=== PATIENT | female | born 1995 | race Caucasian/White ===

== ENCOUNTER 2016-10-24 22:00 | Emergency (ER) | payer OTHER ==
--- NOTE | 2016-10-25 00:06 | ED CLINICAL REPORT ---
Clinical Report - Physicians/Mid Levels [facility] [address] [place] [address] 10/24/2016 22:02 Patient: SHERIN MUNIZ Time Seen: 22:09; initial patient contact. Arrived- By private vehicle. Historian- patient. HISTORY OF PRESENT ILLNESS Chief Complaint: VOMITING. This started today and is still present. It was gradual in onset and has been waxing/waning. No recent travel. She has had nausea, vomiting and mild, crampy abdominal pain. The pain is described as located in the upper abdomen. No diarrhea, constipation, flank pain or known contact with a sick individual. The illness is described as moderate. Similar symptoms previously: None. Recent medical care: Not recently seen/assessed. REVIEW OF SYSTEMS No fever or difficulty with urination. Currently . All systems otherwise negative, except as recorded above. PAST HISTORY See nurses notes. Surgeries: No history of previous surgery. SOCIAL HISTORY Current every day smoker. No alcohol use or drug use. ADDITIONAL NOTES The nursing notes have been reviewed. PHYSICAL EXAM Vital Signs: 10/24/2016 22:06 BP: 114/98. HR: 77. RR: 18. O2 saturation: 96%. Temp: 98.4 F. Pain level now: 8/10. Have been reviewed. Hypertensive. Heart rate normal. Respiratory rate normal. Temperature normal. Oxygen saturation normal. Appearance: Alert. Oriented X3. No acute distress. Eyes: Eyes normal inspection. ENT: Dry mucous membranes present. CVS: Normal heart rate and rhythm. Heart sounds normal. Respiratory: No respiratory distress. Breath sounds normal. Abdomen: Soft. Mild tenderness in the upper abdomen. Bowel sounds normal. No organomegaly. No mass. Back: Normal inspection. No CVA tenderness. Skin: Skin warm and dry. Normal skin color. No rash. Neuro: Oriented X 3. LABS, X-RAYS, AND EKG Laboratory Tests: UA-Culture if indicated: (JEAN-CLAUDE: 10/24/2016 22:50) ( MsgRcvd 10/24/2016 23:14) Final results Test Result Flag Units (Reference) URINE COLOR YELLOW URINE APPEARANCE CLEAR URINE GLUCOSE NEGATIVE (NEGATIVE) URINE BILIRUBIN NEGATIVE (NEGATIVE) URINE KETONE 3+ (NEGATIVE) URINE SPECIFIC GRAVITY >= 1.030 (1.010-1.030) URINE PH 6.0 (5.0-8.0) URINE PROTEIN 1+ (NEGATIVE) URINE UROBILINOGEN 0.2 EU/dL (0.2-1.0) URINE NITRITE NEGATIVE (NEGATIVE) URINE BLOOD NEGATIVE (NEGATIVE) URINE LEUK ESTERASE TRACE (NEGATIVE) URINE RBC 0-1 rbc/hpf (0-1) URINE WBC 3-5 wbc/hpf (0-1) URINE EPITHELIAL CELLS 3-5 EPI/hpf (0-5) URINE BACTERIA MODERATE (2+ TO 3+) (NONE SEEN) URINE COMMENT CULTURE INDICATED URINE CULTURES ARE SET-UP BASED ON THE FOLLOWING CRITERIA:POSITIVE NITRITEPOSITIVE LEUKOCYTE ESTERASEGREATER THAN 10 WHITE BLOOD CELLSMODERATE (2+) OR GREATER BACTERIA Urine: (JEAN-CLAUDE: 10/24/2016 22:50) ( [facility] 10/24/2016 23:03) Final results Test Result Flag Units (Reference) URINE POSITIVE CBC w Diff: (JEAN-CLAUDE: 10/24/2016 22:10) ( [facility] 10/24/2016 22:43) Final results Test Result Flag Units (Reference) WHITE BLOOD COUNT 16.9 H K/uL (4.5-11.5) RED BLOOD COUNT 4.25 M/uL (4.00-5.20) HEMOGLOBIN 12.6 gm/dL (12.0-16.0) HEMATOCRIT 37.9 % (36.0-46.0) MEAN CELL VOLUME 89 fL (80-100) MEAN CORPUSCULAR HGB 30 pg (26-34) MEAN CORPUSCULAR HGB CONC 33 g/dL (31-37) RED CELL DISTRIBUTION WIDTH 13.2 % (11.6-14.8) PLATELET COUNT 278 K/uL (150-400) LYMPH % 23.2 L % (25-40) MONO % 3.6 % (3-14) GRANULOCYTE % 73.2 (53-90) CMP: (JEAN-CLAUDE: 10/24/2016 22:10) ( MsgRcvd 10/24/2016 22:48) Final results Test Result Flag Units (Reference) GLUCOSE 88 mg/dL (70-110) BUN 7 mg/dL (7-18) CREATININE 0.6 mg/dL (0.6-1.3) Estimated GFR >60 mL/min Estimated GFR- >60 mL/min Note: Persistent reduction over 3 months in eGFR<60 mL/min/1.73 m2 defines CKD. Patients with eGFR values>=60 mL/min/1.73 m2 may also have CKD if evidence ofpersistent proteinuria. Additional information may be foundat www.kidney.org. SODIUM 140 mmol/L (136-145) POTASSIUM 3.4 L mmol/L (3.5-5.1) CHLORIDE 102 mmol/L (98-107) CARBON DIOXIDE 23 mmol/L (21-32) CALCIUM 9.0 mg/dL (8.5-10.1) TOTAL PROTEIN 7.9 g/dL (6.4-8.2) ALBUMIN 3.8 g/dL (3.3-5.0) BILIRUBIN, TOTAL 0.4 mg/dL (0.0-1.0) ALKALINE PHOSPHATASE 67 U/L (46-116) AST (SGOT) 14 L U/L (15-37) ALT (SGPT) 19 U/L (12-78) LIPASE 102 U/L (73-393) AMYLASE 40 U/L (25-115) . PROGRESS AND PROCEDURES Course of Care: 00:06 10/25/16. Pt reports feeling much better after IVF, Zofran, and Famotidine. Pt also looks better. Disposition: Discharged home in good and improved condition. Condition: good. CLINICAL IMPRESSION Vomiting with nausea. No dehydration or volume depletion. Not intractable or bilious. Acute urinary tract infection with cystitis. No pyelonephritis or hematuria. INSTRUCTIONS Drink plenty of fluids. Your Current Medications: CONTINUE TAKING THE FOLLOWING MEDICATIONS: Vitamins Oral. Prescription Medications: Macrobid 100 mg: take 1 capsule orally every 12 hours for 7 days. No refill. Substitution is permissible. Zofran ODT 4 mg: take 1 orally every 6 hours as needed for nausea and vomiting. Dispense ten (10). One refill. Substitution is permissible. Follow-up: Follow up with your doctor Wednesday as scheduled. Screening today revealed the patient's blood pressure to be in the hypertensive range. The patient should follow up with a primary care provider for blood pressure management. (Electronically signed by Felton Tapia Dr. 10/25/2016 1:39)
--- NOTE | 2016-10-25 00:06 | ED ORDER SUMMARY ---
..... Patient: SHERIN MUNIZ OrderSheet [facility] VisitID: [id number] [place] [address] 20y, F Registration Date/Time: 10/24/2016 ORDER SHEET Weight: 79.3 kg (stated) Allergies: No Known Drug Allergy GENERAL ORDERS: CBC w Diff Urgent (22:10/24/2016 Cat Sage) (22:41 CHagerty ER Fiber Product Cutting Machine Operator) CMP Urgent (22:10/24/2016 Cat Sage) (22:41 CHagerty ER Fiber Product Cutting Machine Operator) UA-Culture if indicated Urgent (22:10/24/2016 Cat Sage) (Ack 22:41 Lucaserty ER Fiber Product Cutting Machine Operator) Urine Urgent (22:10/24/2016 Cat Sage) (Ack 22:41 CHagerty ER Fiber Product Cutting Machine Operator) Amylase Urgent (22:10/24/2016 Cat Sage) (22:41 CHagerty ER Fiber Product Cutting Machine Operator) Lipase Urgent (22:10/24/2016 Cat Sage) (22:41 CHagerty ER Fiber Product Cutting Machine Operator) MEDICATION ORDERS: IV FLUIDS: IV NS : initial bolus none -, then 1000 mL/hr for X1 (NOW) (22:30 10/24/2016 Cat Sage) (23:02 Toshia R.N.) Zofran IV 4 mg (NOW) (22:30 10/24/2016 Cat Sage) (23:03 Toshia R.N.) Famotidine IV 20 mg/50mL (NOW) (22:10/24/2016 Cat Sage) (23:04 Toshia R.N.) ORDER SHEET NOTES: [Electronically signed by Sheriff Mariela Egan (00:20 10/25/2016)] [Electronically signed by Felton Tapia Dr. (01:39 10/25/2016)] [Electronically locked/signed by Sheriff Mariela Egan (00:20 10/25/2016)]
--- NOTE | 2016-10-25 00:06 | ED ORDER SUMMARY ---
..... Patient: SHERIN MUNIZ OrderSheet [facility] VisitID: [id number] [place] [address] 20y, F Registration Date/Time: 10/24/2016 ORDER SHEET Weight: 79.3 kg (stated) Allergies: No Known Drug Allergy GENERAL ORDERS: CBC w Diff Urgent (22:10/24/2016 Cat Sage) (22:41 CHagerty ER Electronic Scale Tester) CMP Urgent (22:10/24/2016 Cat Sage) (22:41 CHagerty ER Electronic Scale Tester) UA-Culture if indicated Urgent (22:10/24/2016 Cat Sage) (Ack 22:41 Lucaserty ER Electronic Scale Tester) Urine Urgent (22:10/24/2016 Cat Sage) (Ack 22:41 CHagerty ER Electronic Scale Tester) Amylase Urgent (22:10/24/2016 Cat Sage) (22:41 CHagerty ER Electronic Scale Tester) Lipase Urgent (22:10/24/2016 Cat Sage) (22:41 CHagerty ER Electronic Scale Tester) MEDICATION ORDERS: IV FLUIDS: IV NS : initial bolus none -, then 1000 mL/hr for X1 (NOW) (22:30 10/24/2016 Cat Sage) (23:02 Toshia R.N.) Zofran IV 4 mg (NOW) (22:30 10/24/2016 Cat Sage) (23:03 Toshia R.N.) Famotidine IV 20 mg/50mL (NOW) (22:10/24/2016 Cat Sage) (23:04 Toshia R.N.) ORDER SHEET NOTES: [Electronically signed by Sheriff Mariela Egan (00:20 10/25/2016)] [Electronically signed by Felton Tapia Dr. (01:39 10/25/2016)] [Electronically locked/signed by Sheriff Mariela Egan (00:20 10/25/2016)]
--- NOTE | 2016-10-25 00:06 | ED NURSING NOTES ---
Clinical Report - Nurses [facility] [place] [address] 10/24/2016 22:02 Patient: SHERIN MUNIZ TRIAGE Triage time 22:06. Acuity: LEVEL 3. Chief Complaint: ABDOMINAL PAIN, NAUSEA and VOMITING. --22:12 Sheriff Egan R.N. 22:06 10/24/16. BP: 114/98. HR: 77. RR: 18. O2 saturation: 96%. Temp: 98.4 F. Pain level now: 01/21. --22:12 Sheriff Egan R.N. Weight: 79.3 kg stated. Height/Length: 62 inches Per Patient. BMI: 32. --22:12 Sheriff Egan R.N. Medications Vitamins Oral. --22:08 Sheriff Egan R.N. Allergies No Known Drug Allergy. --22:08 Sheriff Egan R.N. History Arrived by private vehicle. Historian: patient. Accompanied by family. This started today. Onset. (7 AM). PAST MEDICAL HX: Immunizations not up to date. SURGERY HX: ( Right foot). SOCIAL HX: Light tobacco smoker- less than 1/2 a pack per day. No alcohol use or drug use. FALL RISK ASSESSMENT: Fall risk assessment completed. No fall risk identified. NUTRITIONAL RISK ASSESSMENT: The nutritional risk assessment revealed no deficiencies. FUNCTIONAL ASSESSMENT: Functional assessment: no impairments noted. LEARNING NEEDS ASSESSMENT: The learning needs assessment revealed no barriers. SKIN INTEGRITY ASSESSMENT: Skin integrity risk assessment completed. No skin integrity risk identified. --22:12 Sheriff Egan R.N. ( 7 weeks .). --22:12 Sheriff Egan R.N. PHYSICAL ASSESSMENT Ambulatory to room. GENERAL / NEURO / PSYCH: Alert. Oriented X 4. Appears in no acute distress. HEENT: Mucous membranes are pink. RESPIRATORY: Respirations not labored. CVS: Capillary refill less than 2 seconds. SKIN: Skin is warm and dry. --22:13 Sheriff Egan R.N. NURSING PROGRESS NOTES Oxygen administered. Head of bed elevated. Two patient identifiers checked. Call light placed in reach. Side rails up x 2. Bed placed in lowest position. Brakes of bed on. --22:13 Sheriff Egan R.N. 22:50 10/24/2016 Site #1 started via IV in the right upper arm with an 20g angiocath, with good blood return; one attempt. Blood drawn: rainbow set. Labeled in the presence of the patient and sent to the lab. --23:00 Sheriff Egan R.N. 23:02 10/24/2016 Started bag #1 1000 mL IV Fluids IV NS (Saline); at 1000 mL/hr over 1000 hour(s) via site #1 via IV pump. Allergies verified and confirmed 5 rights. IV patency established site checked: no pain, redness, or swelling flushed thoroughly pre- and post-medication administration. --23:02 Sheriff Egan R.N. 23:03 10/24/2016 Zofran (Ondansetron HCl) IVP 4 mg given. via site #1. Allergies verified and confirmed 5 rights. IV patency established site checked: no pain, redness, or swelling flushed thoroughly pre- and post-medication administration. IVP given by RN. --23:03 Sheriff Egan R.N. 23:04 10/24/2016 Started 20 mg of Famotidine IVPB in bag #1 50 mL; at 50 mg/kg/hr via site #1; Allergies verified and confirmed 5 rights. IV patency established site checked: no pain, redness, or swelling flushed thoroughly pre- and post-medication administration. --23:04 Sheriff Egan R.N. 00:18 10/25/2016 IV Fluids IV NS Discontinued: bag #1 completed. Total amount infused: 1000 mL. IV patency established IV site checked: no pain, redness, or swelling IV flushed thoroughly. --00:18 Sheriff Egan R.N. DISPOSITION / DISCHARGE No learning barriers present. Discharge instructions provided and reviewed with the patient. Reviewed medication(s) side effects, precautions, dosing and course information. Prescription(s) given to the parent. Patient verbalized understanding. Written instructions provided in Bulgarian. ( IV discontinued on Right A/C. Catheter intact.). The patient was discharged home and accompanied by parent. She left the Emergency Department ambulatory and via private vehicle. Parent driving. --00:20 Sheriff Egan R.N. Locked/Released at 10/25/2016 0:20 by Sheriff Egan R.N.
--- NOTE | 2016-10-25 01:40 | ED MED RECONCILIATION SUMMARY ---
Patient: SHERIN MUNIZ Medication Reconciliation Report [facility] VisitID: [id number] [address] [place] [address] 20y, F Registration Date/Time: 10/24/2016 Weight: 79.3 kg Height/Length: 62 in. BMI: 32.0 ALLERGIES: No Known Drug Allergy The patient's Home Medications are listed below: CONTINUE TAKING THE FOLLOWING MEDICATIONS: Vitamins Oral The source(s) of the original Home Medication information: Not obtained. The following Medications were given to the patient in the Emergency Department: IV NS IV Fluids bolus 0, then 1000 mL/hr, administered: 10/24/2016 11:02:00 PM Zofran [IVP] IVP 4 mg, administered: 10/24/2016 11:03:00 PM Famotidine [IVPB] IVPB bolus 0, then 20 mg 50 mg/kg/hr, administered: 10/24/2016 11:04:00 PM The following Medications were prescribed to the patient: Macrobid 100 mg: take 1 capsule orally every 12 hours for 7 days. No refill. Substitution is permissible. -- Felton Tapia Dr. Zofran ODT 4 mg: take 1 orally every 6 hours as needed for nausea and vomiting. Dispense ten (10). One refill. Substitution is permissible. -- Felton Tapia Dr.
--- NOTE | 2016-10-25 01:40 | ED MED RECONCILIATION SUMMARY ---
Patient: SHERIN MUNIZ Medication Reconciliation Report [facility] VisitID: [id number] [address] [place] [address] 20y, F Registration Date/Time: 10/24/2016 Weight: 79.3 kg Height/Length: 62 in. BMI: 32.0 ALLERGIES: No Known Drug Allergy The patient's Home Medications are listed below: CONTINUE TAKING THE FOLLOWING MEDICATIONS: Vitamins Oral The source(s) of the original Home Medication information: Not obtained. The following Medications were given to the patient in the Emergency Department: IV NS IV Fluids bolus 0, then 1000 mL/hr, administered: 10/24/2016 11:02:00 PM Zofran [IVP] IVP 4 mg, administered: 10/24/2016 11:03:00 PM Famotidine [IVPB] IVPB bolus 0, then 20 mg 50 mg/kg/hr, administered: 10/24/2016 11:04:00 PM The following Medications were prescribed to the patient: Macrobid 100 mg: take 1 capsule orally every 12 hours for 7 days. No refill. Substitution is permissible. -- Felton Tapia Dr. Zofran ODT 4 mg: take 1 orally every 6 hours as needed for nausea and vomiting. Dispense ten (10). One refill. Substitution is permissible. -- Felton Tapia Dr.
--- NOTE | 2016-10-25 01:40 | ED MAR SUMMARY ---
..... Medication Administration Record [facility] [address] [place] [address] Patient: SHERIN MUNIZ Visit ID: [id number] 20y, F Weight: 79.3 kg Height/Length: 62 in BMI: 32 ALLERGIES: No Known Drug Allergy Start 23:02 10/24/2016 Sheriff Egan R.N., Stop 00:18 10/25/2016 Sheriff Egan R.N. Medication Administered: IV NS (SALINE), Dose: IV Fluids over 1000 hour(s), Rate: 1000 mL/hr, Dispensed: 1000 mL bag, Site: #1 right upper arm. Medication Ordered: IV NS : initial bolus none -, then 1000 mL/hr for X1 (NOW). Given 23:03 10/24/2016 Sheriff Egan R.N. Medication Administered: ZOFRAN [IVP] (ONDANSETRON HCL), Dose: 4 mg IVP, Site: #1 right upper arm. Medication Ordered: Zofran IV 4 mg (NOW). Start 23:04 10/24/2016 Sheriff Egan R.N. Medication Administered: FAMOTIDINE [IVPB], Dose: 20 mg IVPB, Rate: 50 mg/kg/hr, Dispensed: 50 mL bag, Site: #1 right upper arm. Medication Ordered: Famotidine IV 20 mg/50mL (NOW).
--- NOTE | 2016-10-25 01:40 | ED DISCHARGE INSTRUCTIONS ---
Patient: SHERIN MUNIZ General Instructions [facility] VisitID: [id number] [place] [address] 20y, F Registration Date/Time: 10/24/2016 Vomiting with nausea. No dehydration or volume depletion. Not intractable or bilious. Acute urinary tract infection with cystitis. No pyelonephritis or hematuria. INSTRUCTIONS Drink plenty of fluids. Your Current Medications: CONTINUE TAKING THE FOLLOWING MEDICATIONS: Vitamins Oral. Prescription Medications: Macrobid 100 mg: take 1 capsule orally every 12 hours for 7 days. No refill. Substitution is permissible. Zofran ODT 4 mg: take 1 orally every 6 hours as needed for nausea and vomiting. Dispense ten (10). One refill. Substitution is permissible. Follow-up: Follow up with your doctor Wednesday as scheduled. Screening today revealed the patient's blood pressure to be in the hypertensive range. The patient should follow up with a primary care provider for blood pressure management. ADDITIONAL INFORMATION Vomiting [6Yr-Adult] Vomiting is a common symptom that may be due to different causes. These include gastroenteritis ("stomach flu"), food poisoning and gastritis. There are other more serious causes of vomiting which may be hard to diagnose early in the illness. Therefore, it is important to watch for the warning signs listed below. The main danger from repeated vomiting is dehydration. This is due to excess loss of water and minerals from the body. When this occurs, body fluids must be replaced. Home Care: If symptoms are severe, rest at home for the next 24 hours. You may use acetaminophen (Tylenol) or ibuprofen (Motrin, Advil) to control fever, unless another medicine was prescribed. [NOTE : If you have chronic liver or kidney disease or ever had a stomach ulcer or GI bleeding, talk with your doctor before using these medicines.] (Aspirin should never be used in anyone under 18 years of age who is ill with a fever. It may cause severe liver damage.) Avoid tobacco and alcohol use, which may worsen your symptoms. If medicines for vomiting were prescribed, take as directed. Once vomiting stops, then follow these guidelines: During The First 12-24 Hours follow the diet below: FRUIT JUICES: Apple, grape juice, clear fruit drinks, and electrolyte replacement drinks. BEVERAGES: Soft drinks without caffeine; mineral water (plain or flavored), decaffeinated tea and coffee. SOUPS: Clear broth, consomm and bouillon DESSERTS: Plain gelatin, popsicles and fruit juice bars. As you feel better, you may add 6-8 ounces of yogurt per day. During The Next 24 Hours you may add the following to the above: Hot cereal, plain toast, bread, rolls, crackers Plain noodles, rice, mashed potatoes, chicken noodle or rice soup Unsweetened canned fruit (avoid pineapple), bananas Limit caffeine and chocolate. No spices or seasonings except salt. During The Next 24 Hours Gradually resume a normal diet, as you feel better and your symptoms lessen. Follow Up with your doctor as advised if you are not improving over the next 2-3 days. Get Prompt Medical Attention if any of the following occur: Constant right-sided lower abdominal pain or increasing general abdominal pain Continued vomiting (unable to keep liquids down) for 24 hours Frequent diarrhea (more than 5 times a day); blood (red or black color) or mucus in diarrhea Reduced urine output or extreme thirst Weakness, dizziness or fainting Unusually drowsy or confused Fever of 100.4F (38C) oral or higher, not better with fever medication Yellow color of the eyes or skin Bladder Infection,Female (Adult) A bladder infection ("cystitis" or "UTI") usually causes a constant urge to urinate and a burning when passing urine. Urine may be cloudy, smelly or dark. There may be pain in the lower abdomen. A bladder infection occurs when bacteria from the vaginal area enter the bladder opening (urethra). This can occur from sexual intercourse, wearing tight clothing, dehydration and other factors. Home Care: Drink lots of fluids (at least 6-8 glasses a day, unless you must restrict fluids for other medical reasons). This will force the medicine into your urinary system and flush the bacteria out of your body. Avoid sexual intercourse until your symptoms are gone. Avoid caffeine, alcohol and spicy foods. These can irritate the bladder. A bladder infection is treated with antibiotics. You may also be given Pyridium (generic = phenazopyridine) to reduce the burning sensation. This medicine will cause your urine to become a bright orange color. The orange urine may stain clothing. You may wear a pad or panty-liner to protect clothing. Preventing Future Infections: Always wipe from front to back after a bowel movement. Keep the genital area clean and dry. Drink plenty of fluids each day to avoid dehydration. Both sexual partners should wash before intercourse. Urinate right after intercourse to flush out the bladder. Wear cotton underwear and cotton-lined panty hose; avoid tight-fitting pants. If you are on control pills and are having frequent bladder infections, discuss with your doctor. Follow Up: Return to this facility or see your doctor if ALL symptoms are not gone after three days of treatment. Get Prompt Medical Attention if any of the following occur: Fever of 100.4F (38C) or higher, or as directed by your healthcare provider No improvement by the third day of treatment Increasing back or abdominal pain Repeated vomiting; unable to keep medicine down Weakness, dizziness or fainting Vaginal discharge Pain, redness or swelling in the labia (outer vaginal area) Nitrofurantoin, Nitrofurantoin, Macrocrystalline Oral capsule What is this medicine? NITROFURANTOIN (paige BROOKS toykim) is an antibiotic. It is used to treat urinary tract infections. How should I use this medicine? Take this medicine by mouth with a glass of water. Follow the directions on the prescription label. Take this medicine with food or milk. Take your doses at regular intervals. Do not take your medicine more often than directed. Do not stop taking except on your doctor's advice. Talk to your paste maker regarding the use of this medicine in children. While this drug may be prescribed for selected conditions, precautions do apply. What side effects may I notice from receiving this medicine? Side effects that you should report to your doctor or health infant childcare provider as soon as possible: allergic reactions like skin rash or hives, swelling of the face, lips, or tongue chest pain cough difficulty breathing dizziness, drowsiness fever or infection joint aches or pains pale or blue-tinted skin redness, blistering, peeling or loosening of the skin, including inside the mouth tingling, burning, pain, or numbness in hands or feet unusual bleeding or bruising unusually weak or tired yellowing of eyes or skin Side effects that usually do not require medical attention (report to your doctor or health infant childcare provider if they continue or are bothersome): dark urine diarrhea headache loss of appetite nausea or vomiting temporary hair loss What may interact with this medicine? antacids containing magnesium trisilicate probenecid quinolone antibiotics like ciprofloxacin, lomefloxacin, norfloxacin and ofloxacin sulfinpyrazone What if I miss a dose? If you miss a dose, take it as soon as you can. If it is almost time for your next dose, take only that dose. Do not take double or extra doses. Where should I keep my medicine? Keep out of the reach of children. Store at room temperature between 15 and 30 degrees C (59 and 86 degrees F). Protect from light. Throw away any unused medicine after the expiration date. What should I tell my health care provider before I take this medicine? They need to know if you have any of these conditions: anemia diabetes [id number] dehydrogenase deficiency kidney disease liver disease lung disease other chronic illness an unusual or allergic reaction to nitrofurantoin, other antibiotics, other medicines, foods, dyes or preservatives or trying to get breast-feeding What should I watch for while using this medicine? Tell your doctor or health infant childcare provider if your symptoms do not improve or if you get new symptoms. Drink several glasses of water a day. If you are taking this medicine for a long time, visit your doctor for regular checks on your progress. If you are diabetic, you may get a false positive result for sugar in your urine with certain brands of urine tests. Check with your doctor. Ondansetron Oral disintegrating tablet What is this medicine? ONDANSETRON (on JAIR se sindy) is used to treat nausea and vomiting caused by chemotherapy. It is also used to prevent or treat nausea and vomiting after surgery. How should I use this medicine? These tablets are made to dissolve in the mouth. Do not try to push the tablet through the foil backing. With dry hands, peel away the foil backing and gently remove the tablet. Place the tablet in the mouth and allow it to dissolve, then swallow. While you may take these tablets with water, it is not necessary to do so. Talk to your paste maker regarding the use of this medicine in children. Special care may be needed. What side effects may I notice from receiving this medicine? Side effects that you should report to your doctor or health infant childcare provider as soon as possible: allergic reactions like skin rash, itching or hives, swelling of the face, lips, or tongue breathing problems dizziness fast or irregular heartbeat feeling faint or lightheaded, falls fever and chills swelling of the hands and feet tightness in the chest Side effects that usually do not require medical attention (report to your doctor or health infant childcare provider if they continue or are bothersome): constipation or diarrhea headache What may interact with this medicine? Do not take this medicine with any of the following medications: -apomorphine -cisapride -dofetilide -dronedarone -pimozide -thioridazine -ziprasidone This medicine may also interact with the following medications: -carbamazepine -phenytoin -rifampicin -tramadol -other medicines that prolong the QT interval (cause an abnormal heart rhythm) What if I miss a dose? If you miss a dose, take it as soon as you can. If it is almost time for your next dose, take only that dose. Do not take double or extra doses. Where should I keep my medicine? Keep out of the reach of children. Store between 2 and 30 degrees C (36 and 86 degrees F). Throw away any unused medicine after the expiration date. What should I tell my health care provider before I take this medicine? They need to know if you have any of these conditions: heart disease history of irregular heartbeat liver disease low levels of magnesium or potassium in the blood an unusual or allergic reaction to ondansetron, granisetron, other medicines, foods, dyes, or preservatives or trying to get breast-feeding What should I watch for while using this medicine? Check with your doctor or health infant childcare provider as soon as you can if you have any sign of an allergic reaction. You have been given the following additional information: Vomiting (6Y-Adult) Bladder Infection, Female (Adult) Nitrofurantoin, Nitrofurantoin, Macrocrystalline Oral capsule Ondansetron Oral disintegrating tablet (Electronically signed by Felton Tapia Dr. 10/25/2016 1:39)
--- NOTE | 2016-10-25 01:40 | ED MAR SUMMARY ---
..... Medication Administration Record [facility] [address] [address] Patient: SHERIN MUNIZ Visit ID: [id number] 20y, F Weight: 79.3 kg Height/Length: 62 in BMI: 32 ALLERGIES: No Known Drug Allergy Start 23:02 10/24/2016 Sheriff Egan R.N., Stop 00:18 10/25/2016 Sheriff Egan R.N. Medication Administered: IV NS (SALINE), Dose: IV Fluids over 1000 hour(s), Rate: 1000 mL/hr, Dispensed: 1000 mL bag, Site: #1 right upper arm. Medication Ordered: IV NS : initial bolus none -, then 1000 mL/hr for X1 (NOW). Given 23:03 10/24/2016 Sheriff Egan R.N. Medication Administered: ZOFRAN [IVP] (ONDANSETRON HCL), Dose: 4 mg IVP, Site: #1 right upper arm. Medication Ordered: Zofran IV 4 mg (NOW). Start 23:04 10/24/2016 Sheriff Egan R.N. Medication Administered: FAMOTIDINE [IVPB], Dose: 20 mg IVPB, Rate: 50 mg/kg/hr, Dispensed: 50 mL bag, Site: #1 right upper arm. Medication Ordered: Famotidine IV 20 mg/50mL (NOW).
== END 2016-10-25 00:15 | disposition home or self-care (01) ==
LOC: ED SRH 22:00
DX: O21.8 Other vomiting complicating pregnancy (principal); R11.0 Nausea; O23.10 Infections of bladder in pregnancy, unspecified trimester; Z3A.00 Weeks of gestation of pregnancy not specified
CPT/HCPCS: 90004; 90100; 90469; 92235; 92530; 93070; 95059